=== PATIENT | female | born 1955 | race Two or more races ===

== ENCOUNTER 2022-01-06 11:30 | Inpatient (IN) | payer OTHER ==
[~2022-01-06] VITALS: Ht 162.6 cm; Wt 85.7 kg
[2022-01-06] MEDS ORDERED: NORVASC10 MG PO (14:12)
[2022-01-06] MEDS ORDERED: SYNTHROID100 MCG PO (14:12)
[2022-01-09] MEDS ORDERED: COLACE100 MG PO (07:24)
[2022-01-09] MEDS ORDERED: DIAZEPAM5 MG PO (07:25)
[2022-01-09] MEDS ORDERED: MEDROLPACK PO (07:25)
[2022-01-09] MEDS ORDERED: ULTRACET PO (07:25)
== END 2022-01-10 14:43 | disposition home or self-care (01) | DRG 473 ==
LOC: SURH 01-08 11:30 → O/R 01-09 05:06 → SURH 01-09 05:06
PROVIDERS: ADMIT Orthopaedic Surgery Orthopaedic Surgery of the Spine; ATTEND Orthopaedic Surgery Orthopaedic Surgery of the Spine
PROC: 0RB30ZZ Excision of Cervical Vertebral Disc, Open Approach (ICD-10-PCS; 2022-01-09)
PROC: 0PB30ZZ Excision of Cervical Vertebra, Open Approach (ICD-10-PCS; 2022-01-09)
PROC: 07DS0ZZ Extraction of Vertebral Bone Marrow, Open Approach (ICD-10-PCS; 2022-01-09)
PROC: 0RG20A0 Fusion of 2 or more Cervical Vertebral Joints with Interbody Fusion Device, Anterior Approach, Anterior Column, Open Approach (ICD-10-PCS; principal; 2022-01-09 13:30)
DX: M50.022 Cervical disc disorder at C5-C6 level with myelopathy (principal); M48.02 Spinal stenosis, cervical region; I10 Essential (primary) hypertension; E03.8 Other specified hypothyroidism; Z20.822 Contact with and (suspected) exposure to COVID-19